=== PATIENT | male | born 1990 | race Caucasian/White ===

== ENCOUNTER 2021-12-25 15:14 | Emergency (ER) | payer SELFPAY ==
[2021-12-25 15:15] VITALS: BP 131/73; PULSE 81; RESP 16; O2SAT 99; BMI 22.8
--- NOTE | 2021-12-25 15:33 | XR_ITS ---
WS: [id number] Portable AP upright chest, 12/25/2021 Clinical Data: COVID Comparison: None. Findings: No nodules, masses or effusions are seen. The heart is normal. The pulmonary vascularity is not increased. No pneumonia or pneumothorax is seen. XR/XR chest 1V portable [id number] Impression: Negative chest.
--- NOTE | 2021-12-25 15:35 | ED_ITS ---
HPI - COVID General: Chief Complaint: Chest Pain Stated Complaint: CHEST PAIN X 3 DAYS, COVID POSITIVE Time Seen by Provider: 12/25/21 15:15 Source: patient Mode of arrival: EMS (In law enforcement custody) Limitations: no limitations Triage information: No fever, cough or shortness of breath . No known COVID + exposure last 14 days History of Present Illness: 31-year-old male was inmate at the local shelter was tested positive for Covid 3 days ago. Is complaining of bilateral numbness in his hands is also complaining of chest discomfort. Is not had any cough is not hypoxic he had not previously been vaccinated. No diarrhea no anosmia. MD complaint: known COVID positive Prior covid testing: yes, results known Prior testing date: 12/22/21 COVID 19 common symptoms: positive cough, non-productive cough, fatigue and body aches; negative fever(s), chills, throat pain, nasal congestion, nausea, vomiting or diarrhea COVID 19 other sytmptoms: positive pleuritic pain; negative chest pain Onset (ago): day(s) COVID Results: No Data to Display Review of Systems Const: Reports: body aches and fatigue; Denies: fever(s) or chills ENMT: Denies: throat pain, ear or mastoid pain, nasal discharge or nasal congestion Card: Denies: chest pain, edema, dyspnea on exertion or orthopnea Resp: Reports: non-productive cough GI: Denies: abdominal pain, nausea, vomiting, hematemesis, coffee ground emesis, diarrhea, constipation, bloating, hematochezia or melena : Denies: flank pain, dysuria, urinary frequency or urinary urgency Skin/Breast: Denies: rash or pruritus PFSH ED PFSH: Medical History No significant past medical history Surgical History No significant past surgical history Social History (Updated 12/26/21 @ 07:47 by Galileo Doshi DO) Smoking and tobacco status: current some day smoker Alcohol intake: current Physical Exam Const: GENERAL APPEARANCE: cooperative and comfortable ORIENTATION/CONSCIOUSNESS: Yes awake, Yes oriented to person, Yes oriented to place and Yes oriented to time HENMT: COMMON NORMALS: normocephalic, atraumatic and hearing grossly normal bilaterally HEAD & SCALP: normocephalic and atraumatic Neck/C-Spine: COMMON NORMALS: no JVD Lymph: LYMPHATIC: no lymphadenopathy noted and no lymphedema noted Resp: COMMON NORMALS: normal respiratory effort, No retractions, No use of accessory muscles and clear to auscultation bilaterally AUSCULTATION: clear to auscultation bilaterally Cardio: COMMON NORMALS: no JVD, regular rate, regular rhythm and No murmurs present (Cardio) RATE: regular rate RHYTHM: regular rhythm GI: COMMON NORMALS: Soft to palpation and No hepatosplenomegaly present AUSCULTATION: Yes normoactive bowel sounds PALPATION: Yes Soft to palpation, No Tenderness to palpation present (GI), No Guarding due to palpation present (GI) and Yes No hepatosplenomegaly present Extremity: COMMON NORMALS: normal to inspection, capillary refill normal, no clubbing, cyanosis or edema, no calf tenderness and no pedal edema OTHER: Slight renounce nomination of the tips of the fingers Neuro: SENSORIUM/ORIENTATION: Yes oriented to person, Yes oriented to place and Yes oriented to time Skin: COMMON NORMALS: no rashes or lesions noted GENERAL SKIN EXAM: no rashes or lesions noted Course Vital Signs: Vital signs: Vital Signs Pulse Rate 58 L 12/25/21 17:59 Respiratory Rate 15 12/25/21 17:59 Blood Pressure 108/69 12/25/21 17:59 Pulse Oximetry 100 12/25/21 17:59 MDM - COVID Medical Decision Making COVID in no acute respiratory distress chest x-ray is normal. He is getting some Raynaud's-like phenomenon of the hands. Reviewed up-to-date will start on aspirin 81 mg he has no other compromise overall he looks like he is tolerating it well he is on day 4 he can be discharged back to shelter and monitor their return if he has any worsening shortness of breath. Medical Records I reviewed the patient's medical records. Lab Data I reviewed the patient's lab results. Radiology Impressions Chest X-Ray 12/25/21 15:33 Impression: Negative chest. No Data to Display Discharge Plan Discharge Clinical Impression: COVID-19, Raynaud phenomenon Prescriptions: New aspirin 81 mg tablet,delayed release (DR/EC) 81 mg PO DAILY Qty: 30 0RF Discharge Orders: Discharge ED (Routine); Ordered 12/25/21 Ordered By: Galileo Doshi Referrals: [facility] [Other] Discharge Diet: Usual diet Discharge Activity: Increase activity as tolerated Patient Instructions: Opioid Safety Activity Restrictions/Additional Instructions: Intent self quarantine until released by health department recommendations. Start aspirin 81 mg daily follow-up as needed return if you have increased shortness of breath. Coding Level of Care Code ED Senior Patient Account Representative for [employer] Fwd Exam Comprehensive
--- NOTE | 2021-12-25 15:51 | PC.PHAR ---
the pt is with a mill helper-the mill helper states they havent been giving the pt any medications-no meds pull up on ext med history
[2021-12-25 17:59] VITALS: BP 108/69; PULSE 58; RESP 15; O2SAT 100
== END 2021-12-25 17:37 | disposition home or self-care (01) ==
PROVIDERS: Emergency Provider Family Medicine
DX: U07.1 COVID-19 (principal); F17.210 Nicotine dependence, cigarettes, uncomplicated; I73.00 Raynaud's syndrome without gangrene
CPT/HCPCS: 71045; 99282

== ENCOUNTER 2022-03-06 08:16 | Emergency (ER) | payer SELFPAY ==
[2022-03-06 08:19] VITALS: BP 130/76; PULSE 81; RESP 16; TEMP 36.4; O2SAT 100; BMI 21.6
--- NOTE | 2022-03-06 08:27 | W.ED.SKABFB ---
HPI - Skin/Abscess/Foreign Bdy General: Chief complaint: Skin/Abscess/Foreign Body Stated complaint: Gum/tooth pain Time Seen by Provider: 03/06/22 08:26 History of Present Illness: Mr. Whitney is a 31-year-old gentleman without significant past medical history who was a history of poor dentition and history of dental abscesses presenting to the emergency department due to facial swelling and pain. He reports mild discomfort and swelling a few days ago however this has since spread and increase greater than previous. He endorses some radiation to the right ear. He notes some discomfort with swallowing and has only been tolerating soft foods. Denies signs of systemic illness. Intensity of pain is moderate to severe. Course has worsened. No other specific changes in health, exacerbating, or alleviating factors identified. Onset (ago): day(s) Severity: moderate Quality: aching and other Pain Consistency: constant Review of Systems General: Reports: 10 or more systems reviewed and unremarkable except in HPI and below PFSH ED PFSH: Medical History No significant past medical history Surgical History No significant past surgical history Social History Smoking and tobacco status: current some day smoker Alcohol intake: current Physical Exam Const: COMMON NORMALS: alert GENERAL APPEARANCE: cooperative and well developed HENMT: COMMON NORMALS: normocephalic and atraumatic HEAD & SCALP: normocephalic and atraumatic THROAT: posterior oropharynx normal OTHER: Numerous missing teeth and poor dentition, there is swelling of the entire upper lip with increased induration with possible fluctuance above tooth 9 and 10 though induration primarily involves upper lip and gumline is difficult to visualize. Eye: COMMON NORMALS: conjunctivae normal CONJUNCTIVA: Yes conjunctivae normal SCLERA: sclerae normal Neck/C-Spine: COMMON NORMALS: supple GENERAL: Yes trachea midline Resp: COMMON NORMALS: normal respiratory effort EFFORT & INSPECTION: Yes able to speak in complete sentences Cardio: COMMON NORMALS: regular rate and regular rhythm RATE: regular rate RHYTHM: regular rhythm GI: COMMON NORMALS: Soft to palpation PALPATION: Yes Soft to palpation and No Tenderness to palpation present (GI) PERCUSSION: normal to percussion Extremity: GENERAL: Yes normal exam except as noted and No edema Neuro: COMMON NORMALS: moves all extremities SENSORIUM/ORIENTATION: Yes alert and No Orientation impaired Psych: COMMON NORMALS: mental status grossly normal and Normal thought process present THOUGHT PROCESS: Normal thought process present Course ED course: - Patient was seen and evaluated by me at bedside - Patient placed on cardiac monitors, vital signs obtained. No tachycardia or fever. - Initial evaluation notable for exam as above - Given questionable abscess and location CT imaging for further guidance and possible drainage was ordered. - Imaging notable for no drainable fluid collection, likely phlegmon versus early developing abscess which is not well-defined. Additionally patient has evidence of longstanding dental infections including bony erosion. - Upon serial reexamination after treatment the patient was improved with analgesia. First dose of antibiotics given. - Based on patient history, evaluation, and testing as interpreted the most likely cause of the patient's condition is cellulitis and dental infection. - The results of ED evaluation were discussed with the patient including need for follow-up with oral surgeon and dentist. I discussed prescriptions and/or symptomatic cares (if applicable) including appropriate and responsible use, followup plan, and return precautions. The patient verbalized understanding and felt safe for discharge. - Patient discharged in satisfactory condition. Note: Click bubbles or prepopulated mcnair in note writing are used for assistance with data collection and billing and are inherently more limited than narrative and other text portions of this note. Please use narrative for additional clinical history and defer to narrative/free test for any case of contradictory information. If information appears in only free text or click bubble it should be considered present or absent as reported. Please contact note senior grant writer for clarifications of clinical information or contradictory information. MDM is a brief summary, contradictory or erroneous seeming information should be clarified and full note should be reviewed. Vital Signs: Vital signs: Vital Signs Temperature 97.6 F 03/06/22 08:19 Pulse Rate 80 03/06/22 10:39 Respiratory Rate 16 03/06/22 08:39 Blood Pressure 135/95 03/06/22 10:39 Pulse Oximetry 99 03/06/22 10:39 MDM - Skin/Abscess/Foreign Bdy Medicial Decision Making 31-year-old gentleman with history of poor dentition presenting with facial swelling and concern for dental abscess. Upper lip swelling with adjacent likely dental infection though no clear drainable fluid collection. CT performed. No evidence of airway compromise or sepsis on exam. Patient tolerating p.o. intake. Plan to treat in the outpatient setting with antibiotics and pain control with directions to follow-up with [facility]. Medical Records I reviewed the patient's medical records. Lab Data I reviewed the patient's lab results. Radiology Impressions Face CT 03/06/22 08:33 IMPRESSION: 1. Lytic periapical lesion involving the LEFT medial incisor with anterior bony erosion. Lytic lesion measures approximately 9 x 4 mm. This is presumably odontogenic in etiology. 2. Adjacent anterior bony erosion of the maxilla with inflammatory stranding and edema in the anterior maxillary soft tissues. Suggestion of a small amount of central phlegmon or abscess measuring 1.2 x 1.0 CM. This does not appear easily drainable. Recommend follow-up to resolution and consider oral surgery consultation. 3. No evidence of deep soft tissue infection. 4. 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 6. Chronic appearing opacification RIGHT frontal sinus with inspissated secretions. Notified Darell Yeh MD at 03/06/2022 10:06 AM. Discharge Plan Discharge Patient Disposition: Home Clinical Impression: Dental infection, Facial swelling, Phlegmonous cellulitis Condition: Stable Prescriptions: New hydrocodone-acetaminophen 5-325 mg tablet 1 tab PO Q4H PRN (Reason: pain) Qty: 10 0RF No Action aspirin 81 mg tablet,delayed release (DR/EC) 81 mg PO DAILY Qty: 30 0RF Discharge Orders: Discharge ED (Routine); Ordered 03/06/22 Ordered By: Darell Yeh Referrals: [facility] [Other] Discharge Diet: Usual diet Discharge Activity: Increase activity as tolerated Patient Instructions: Cellulitis (ED), Opioid Safety Activity Restrictions/Additional Instructions: Thank you for visiting the emergency department. You were seen and evaluated for facial swelling. As discussed you likely have a dental source of infection that has spread to the lip as well. There is no drainable abscess however there is phlegmon which may progress to abscess You will be treated with antibiotics and pain control. You may additionally use [id number] pain medication however please do not exceed the daily recommended dosage and please keep in mind that many namebrand medications contain the same active ingredients. Additionally you must account for the 325 mg of acetaminophen contained in each [place] tablet. Additionally you have evidence of bony destruction related to likely chronic infections in addition to current infection. Please follow-up with the oral surgeon. Unfortunately the closest oromaxillofacial surgeon is probably in [place]. You can search online for anyone you choose. Please follow-up with a dentist as well as your primary care provider. Return to the emergency department for worsening symptoms, failure to improve in the next few days, any evidence of difficulty with breathing or inability to tolerate oral secretions, or anything else that you are concerned about a feel needs emergency department evaluation. Coding Level of Care Code ED Credit Correspondence Clerk for [employer] Fwd Exam Comprehensive
--- NOTE | 2022-03-06 08:33 | CT_ITS ---
WS: [id number] CT FACIAL BONES TECHNIQUE: Noncontrast facial bones with coronal and sagittal reformatted images. CLINICAL INFORMATION: large frontal maxillary abscess, ?deeper spread COMPARISON: CT head 2011 DLP: 703.[address] scans at [facility] use at least one of these dose optimization techniques: automated e xposure control; mA and/or kV adjustment per patient size (includes targeted exams where dose is matc hed to clinical indication); or iterative reconstruction. FINDINGS: Periapical cystic lesion involving the medial LEFT maxillary incisor with lytic lesion involving the anterior maxilla. Associated cortical erosion along the anterior paramedian maxilla with inflammatory stranding and edema in the anterior maxillary soft tissues. Small central area of phlegmon or absces s measuring 1.2 x 1.0 CM. This does not appear easily drainable. No contrast administered. Adjacent s mall nasopalatine duct cyst with preserved thin-walled cortex between the nasopalatine duct cyst and periapical lesion. Airway remains patent. Normal posterior nasopharynx and visualized oropharynx. No evidence of deep soft tissue infection. Irregularity of the RIGHT lamina papyracea with concavity unchanged since 2011 consistent with chroni c lamina papyracea fracture. Mastoid air cells are well aerated. Opacification of the RIGHT frontal s inus with inspissated secretions. Opacification of the RIGHT frontoethmoidal recess. Sinuses are otherwise well aerated. CT/CT facial bones wo con* [id number] IMPRESSION: 1. Lytic periapical lesion involving the LEFT medial incisor with anterior bon y erosion. Lytic lesion measures approximately 9 x 4 mm. This is presumably odo ntogenic in etiology. 2. Adjacent anterior bony erosion of the maxilla with inflammatory stranding a nd edema in the anterior maxillary soft tissues. Suggestion of a small amount o f central phlegmon or abscess measuring 1.2 x 1.0 CM. This does not appear easi ly drainable. Recommend follow-up to resolution and consider oral surgery consu ltation. 3. No evidence of deep soft tissue infection. 4. 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 6. Chronic appearing opacification RIGHT frontal sinus with inspissated secret ions. Notified Darell Yeh MD at 03/06/2022 10:06 AM.
[2022-03-06 08:39] VITALS: RESP 16
[2022-03-06] MEDS: morphine 4 mg/mL SDV 1 mL IM (08:39)
[2022-03-06 08:51] VITALS: BP 125/76; O2SAT 96
[2022-03-06] MEDS: amoxicillin-clav 875-125 mg Tablet 1 TAB PO (10:33)
[2022-03-06 10:39] VITALS: BP 135/95; PULSE 80; O2SAT 99
== END 2022-03-06 10:40 | disposition home or self-care (01) ==
PROVIDERS: Emergency Provider Emergency Medicine
DX: K04.7 Periapical abscess without sinus (principal); L03.90 Cellulitis, unspecified; Z79.82 Long term (current) use of aspirin; F17.210 Nicotine dependence, cigarettes, uncomplicated
CPT/HCPCS: 70486; 96372; 99284; J2270

== ENCOUNTER → 2025-04-29 12:46 | Outpatient (BNVA) | payer SELFPAY | PROVIDERS: Visit Provider Family Medicine | DX: L02.91 Cutaneous abscess, unspecified (principal) | CPT/HCPCS: 73080 ==